=== PATIENT | female | born 1955 | race Asian ===

== ENCOUNTER 2017-08-26 09:11 | Day surgery (SDC) | payer OTHER ==
[2017-08-23 11:09] VITALS: BMI 36.7
[2017-08-26] MEDS ORDERED: LIDOCAINE HCL 1%, 10 MG/ML (20ML VIAL) ONE (11:37)
[2017-08-26] MEDS ORDERED: MIDAZOLAM HCL 2 MG/2 ML SINGLE DOSE VIAL ONE ×2 (11:56→12:01)
[2017-08-26] MEDS ORDERED: ceFAZolin SODIUM 1 GM VIAL IVPB ONE (12:00)
[2017-08-26] MEDS ORDERED: PROPOFOL 20 ML ONE (12:08)
[2017-08-26] MEDS ORDERED: LIDOCAINE HCL 1%, 10 MG/ML (20ML VIAL) NR ONE ×3 (12:17)
[2017-08-26] MEDS ORDERED: LIDOCAINE HCL 2% (50ML VIAL) NR ONE ×2 (12:28)
[2017-08-26] MEDS ORDERED: ONDANSETRON 4 MG/2 ML VIAL IVPUSH PRN (13:23)
[2017-08-26] MEDS ORDERED: LACTATED RINGERS SOLUTION 1,000 ML IV SCH (13:30)
[2017-08-26 14:21] VITALS: TEMP 97.9
[2017-08-26] MEDS ORDERED: ACETAMINOPHEN 325 MG TABLET (FP) PO ONE ×2 (15:25→15:26)
--- NOTE | 2017-08-26 17:30 | OP ---
Operative Note - Note: Operative Date: 08/26/17 Pre-Operative Diagnosis: urge incontinence Operation: full interstim implant Post-Operative Diagnosis: Same as Pre-op Surgeon: Zion Yost Anesthesia: Fractional
[2017-08-26 18:11] VITALS: BP 140/74; PULSE 72
== END 2017-08-26 17:45 | disposition home or self-care (01) ==
LOC: JASU-SURG 09:11
PROVIDERS: ATTEND Urology
PROC: 01HY0MZ Insertion of Neurostimulator Lead into Peripheral Nerve, Open Approach (ICD-10-PCS; 2017-08-26)
PROC: 0JH70BZ Insertion of Single Array Stimulator Generator into Back Subcutaneous Tissue and Fascia, Open Approach (ICD-10-PCS; principal; 2017-08-26 10:30)
DX: N39.41 Urge incontinence (principal); I10 Essential (primary) hypertension
CPT/HCPCS: 64581; 64590; C1767; C1778; 76000-TC; 94760

== ENCOUNTER 2017-11-11 06:33 | Day surgery (SDC) | payer OTHER ==
[2017-11-08 13:36] VITALS: BMI 35.3
[2017-11-11] MEDS ORDERED: MIDAZOLAM HCL 2 MG/2 ML SINGLE DOSE VIAL ONE (08:01)
[2017-11-11] MEDS ORDERED: PROPOFOL 20 ML ONE ×2 (08:01)
[2017-11-11] MEDS ORDERED: KETOROLAC TROMETHAMINE 30 MG/1 ML VIAL ONE (08:01)
[2017-11-11] MEDS ORDERED: ceFAZolin SODIUM 1 GM VIAL ONE (08:20)
[2017-11-11] MEDS ORDERED: ceFAZolin SODIUM 1 GM VIAL IVPB ONE (08:21)
[2017-11-11] MEDS ORDERED: LIDOCAINE HCL 1%, 10 MG/ML (20ML VIAL) PNB ONE ×2 (08:47→10:37)
[2017-11-11] MEDS ORDERED: LIDOCAINE HCL/PF 2% SDV 5ML VIAL ONE (08:48)
[2017-11-11] MEDS ORDERED: ONDANSETRON 4 MG/2 ML VIAL IVPUSH PRN (10:48)
[2017-11-11] MEDS ORDERED: oxyCODONE HCL 5 MG TABLET PO PRN (10:48)
[2017-11-11] MEDS ORDERED: ACETAMINOPHEN 1000 MG/100 ML VIAL (NON FORMULARY) IVPB PRN (10:48)
[2017-11-11] MEDS ORDERED: LACTATED RINGERS SOLUTION 1,000 ML IV SCH (11:00)
[2017-11-11] MEDS ORDERED: ACETAMINOPHEN INJECTION 100 ML IVPB ONE (11:27)
[2017-11-11] MEDS ORDERED: ACETAMINOPHEN 1000 MG/100 ML VIAL (NON FORMULARY) IVPB ONE (11:31)
--- NOTE | 2017-11-11 12:38 | OP ---
Operative Note - Note: Operative Date: 11/11/17 Pre-Operative Diagnosis: urge incontinence with non-functioning interstim implant Operation: removal of interstim and replacement of full interstim implant Implants: interstim neuromodulator Post-Operative Diagnosis: Same as Pre-op Surgeon: Zion Yost Anesthesia: Local, Fractional Specimens Removed: interstim implant Operative Report Dictated: Yes
[2017-11-11 12:57] VITALS: PULSE 61; TEMP 97.8
[2017-11-11 13:07] VITALS: BP 111/54
--- NOTE | 2017-11-12 09:06 | PATH ---
Surgical Pathology Report Patient Name: ANEESH HUMPHREY Med. Rec. #: [id number] /Age/Gender: 1955 (Age: 62) / F Account: [id number] Location: [facility] SURGICAL Taken: 11/11/2017 Received: 11/11/2017 Reported: 11/12/2017 Physicians: Zion Yost Specimen(s) Received OLD BATTERY AND LEAD Clinical History Urge incontinence Final Diagnosis OLD BATTERY AND LEAD, REMOVAL. 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 MACROSCOPIC DIAGNOSIS ONLY. Electronically Signed Angela Mirza M.D. Gross Description Received fresh labeled "old battery and lead," is a 5.0 x 4.3 x 0.7 cm cortez metallic device, consistent with a battery. The specimen has the following inscription: "[employer] InterStim II SN: [id number]." Also received within the same container is a 31 cm in length portion of wire. No soft tissue is present. No sections are submitted, gross only. /11/11/2017 saudi/11/11/2017
--- NOTE | 2017-11-25 20:37 | OP ---
DATE OF OPERATION: 11/11/2017 PREOPERATIVE DIAGNOSIS: Urge incontinence with nonfunctioning Interstim implant. POSTOPERATIVE DIAGNOSIS: Urge incontinence with nonfunctioning Interstim implant. PROCEDURE: Removal of Interstim, and replacement of full Interstim implant. ATTENDING SURGEON: Erik Yost M.D. ANESTHESIA: Fractional with local anesthesia. DESCRIPTION OF PROCEDURE: Patient was brought in the operating room, placed in a prone position on the operating room table. The patient had a nonfunctioning Interstim implant. The implant site was injected, and the Interstim implant with sharp and blunt dissection was brought out of the wound. The wire was then traced in the midline and the midline incision was made. By pulling on the tether, the dimple in the midline showed where the incision would be made, 2 cm midline incision was made, and the wire was grasped and removed. The full implant and wire were removed and sent for surgical pathology evaluation. At this point, a full Interstim reimplant was performed. The patient was properly identified and placed in prone position as per operating room protocol. MAC anesthesia was administered. The patient was given 1 g of Ancef. Pillows were placed under the lower abdomen to flatten the sacrum and under the shins to allow the toes to dangle freely. Tape was placed on each buttock and pulled laterally to separate cheeks adequately to visualize anal sphincter. The patient was prepped and draped in the usual sterile manner using ChloraPrep prep solution. The C-arm was moved into the PA position to provide fluoroscopy visual and the midline of the vertebrae. S1 notches and medial foraminal borders were marked. The C-arm was moved to the lateral position to image the area from sacral promontory to the coccyx. Local injection of lidocaine was administered. A 3.5-inch size needle was introduced approximately 2 cm above the SI notch and 3 cm lateral to the vertebral midline, feeling for foraminal margins until the S3 foramen was identified and penetrated. The depth of the needle was confirmed and adjusted fluoroscopically. Proper needle position was confirmed by patient identification of location of sensation, direct observation of the lifting of the perineum or bellowing, and observation of plantar flexion of the great toe utilizing the test stimulator box. The needle stylet was removed and a directional guidewire was placed and confirmed fluoroscopically. The foramen needle was removed. An incision was made peripherally to the directional guidewire through the fascial layer. The dilator and introducer sheath were placed over the directional guidewire and directed into the foramen until the opaque marker of the dilator was seen on the anterior rim of the sacrum. The dilator obturator was unlocked and removed. The lead was then placed through the introducer sheath to the first white line. Position was checked fluoroscopically. The lead was then further introduced until 3 electrodes were visible below the sacrum. Each electrode was tested for location of patient sensation, visualization of kale and plantar flexion of the great toe. After satisfactory positioning was confirmed, under continuous fluoroscopy, the introducer sheath was retracted, deploying the lead tines into the perisacral tissue. Further incision was made into the subcutaneous tissue posterior to the iliac crest and blunt dissection was continued until the gluteal fascia was identified and hemostasis was achieved, allowing for a sufficient pocket for the neurostimulator. A tunneling tool and tube were placed from the lead subcutaneously to the incised pocket site. The tunneling tool was removed and the lead was fed through the tube and pulled out at the pocket site. The lead was cleansed of bodily fluids and a boot was placed over the lead. The lead was inserted into the InterStim II pulse generator and the metal bands were aligned with the white lead tip clearly visible in the distal portion of the pulse generator header. The single set screw was tightened with the hex wrench. The pulse generator was placed into the subcutaneous pocket with the etched identification side placed upward and the extension wrapped counterclockwise around the pulse generator. The programming head was placed over the implanted neurostimulator. The impedance was verified to ensure adequate lead placement and the parameters were within normal limits. If impedance is greater than the normal limits, a second interrogation is required. If the second interrogation is required, further troubleshooting may be required. Impedances were checked, confirmed to be within normal limits at greater than 50 and less than 4000. After implantation of the neurostimulator was completed, complex programming of the neurostimulator was performed based on impedance values. Final electrode sensations were set to 0+1-2-. Estimated time for analysis and complex programming was 30 minutes. The wounds were irrigated with antibiotic solution and water and closed with a subcutaneous and subcuticular stitch. Counts were correct. Steri-Strips and gauze were placed over the incision under the cable connector. The estimated blood loss was less than 3 mL. The patient was transferred to postop in satisfactory condition. Using the clinician senior programmer, the patient was programmed to the lead of optimum sensation and given instructions on utilizing the patient senior programmer prior to discharge. ERIK FREGOSO M.D. /[id number]
== END 2017-11-11 13:28 | disposition home or self-care (01) ==
LOC: JASU-SURG 06:33
PROVIDERS: ATTEND Urology
PROC: 4B01XVZ Measurement of Peripheral Nervous Stimulator, External Approach (ICD-10-PCS; 2017-11-11)
PROC: 0JPT0MZ Removal of Stimulator Generator from Trunk Subcutaneous Tissue and Fascia, Open Approach (ICD-10-PCS; 2017-11-11)
PROC: 0JWT0MZ Revision of Stimulator Generator in Trunk Subcutaneous Tissue and Fascia, Open Approach (ICD-10-PCS; principal; 2017-11-11 08:00)
DX: T85.113A Breakdown (mechanical) of implanted electronic neurostimulator, generator, initial encounter (principal); N39.41 Urge incontinence; I10 Essential (primary) hypertension
CPT/HCPCS: 64581; 64590; 95972; L8680; L8686; 76000-TC-FY; 88300-TC; 94760; J0131